=== PATIENT | female | born 1960 | race Caucasian/White ===

== ENCOUNTER 2016-11-26 07:32 | Observation (INO) | payer OTHER ==
[~2016-11-26] VITALS: Ht 165.1 cm; Wt 126.2 kg
[~2016-11-26 07:32] MED LIST: ALDACTONE100 MG PO; ALLEGRA ALLERG180 MG PO; AMIODARONE HCL200 MG PO; ANUSOL1 SUPP PR; ASPIRIN325 MG PO; AUGMENTIN500 MG PO; AUGMENTIN875 MG PO; CARDIZEM CD,CA240 MG PO; CEFTIN500 MG PO; DIFLUCAN100 MG PO; DIGOX250 MCG PO; ECOTRIN325 MG PO; Ecotrin PO; FUROSEMIDE80 MG PO; GABAPENTIN100 MG PO; GABAPENTIN300 MG PO; HUMALOG100 UNIT/2 SC; HYDROCODON-ACE1 EAC7 PO; Humibid LA,Mucinex PO; INVOKANA300 MG PO; JANUMET 50/11 TABLET PO; JANUMET XR 50-1 EAC1 PO; K-DUR20 MEQ PO; K-Dur PO; KLONOPIN0.5 M1 PO; KlonoPIN PO; LANTUS 10100 UNITS/ SC; LANTUS 3 M100 UNITS/ PO; LANTUS100 UNIT/1 SQ; LASIX20 MG PO; LASIX80 MG PO; LEVAQUIN750 MG PO; LEXAPRO20 MG PO; LOPRESSOR25 MG PO; LYRICA150 MG PO; Lasix PO; METOPROLOL TART25 MG PO; MOBIC15 MG PO; MYCOSTATIN 100,60 ML PO; NORVASC5 MG; OXYCODONE-APAP1 EACH PO; PACERONE100 MG PO; PANTOPRAZOLE SO40 MG PO; PRADAXA150 MG PO; PROBIOTIC DIGE1 EACH PO; PROCTOSOL-HC28.35 GM PR; PROTONIX40 MG PO; REQUIP1 MG PO; REQUIP3 MG PO; SPIRONOLACTONE100 MG PO; SPIRONOLACTONE25 MG PO; TOUJEO SOL300 UNIT/1 SC; TRULICITY1.5 MG/0.5 SC; TYLENOL EXTRA500 MG PO; Toprol XL PO; Tylenol Regular Stre PO; WELLBUTRIN XL150 MG PO; ZESTRIL,PRINIVI40 MG PO; ZOLOFT100 M1 PO; Zithromax PO
[2016-11-26 08:26] LABS: HEMATOCRIT 36.5 % (36.0-46.0); MCH 24.3 PG (29.0-34.0); MCHC 30.7 G/DL (30.0-36.0); MCV 79.3 FL (83-99); MEAN PLAT.VOLUME 9.6 uM^3 (9.5-12.4); PLATELET COUNT 292 K/uL (156-360); RBC DIS.WIDTH-CV 16.3 % (11.8-14.6); WHITE BLOOD COUNT 8.4 K/uL (4.1-10.2)
[2016-11-26 08:31] LABS: EOSINOPHIL (%) 6.3 % (0-5); EOSINOPHIL COUNT 0.5 K/uL (0-0.3); IMMATURE GRANULOCYTE (%) 0.2 % (0.0-0.7); IMMATURE GRANULOCYTE COUNT 0.2 K/uL; LYMPHOCYTE COUNT 1.7 K/uL (1.0-2.8); MONOCYTE (%) 6.4 % (3-12); MONOCYTE COUNT 0.5 K/uL (0-0.8); NEUTROPHIL (%) 66.2 % (45-76); NEUTROPHIL COUNT 5.6 K/uL (1.8-6.4)
[2016-11-26 08:38] LABS: CHLORIDE 108 mEq/L (99-109); POTASSIUM 3.9 mEq/L (3.7-5.4); PROTHROMBIN TIME 10.5 (9.2-11.2); PTT 30.1 (25-32); SODIUM 140 mEq/L (136-147)
[2016-11-26 08:41] LABS: GLUCOSE 148 mg/dL (70-99)
[2016-11-26 08:42] LABS: ANION GAP 8 MEQ/L (2-14); TOTAL BILIRUBIN 0.1 mg/dL (0.0-1.0)
[2016-11-26 08:44] LABS: ALKALINE PHOSPHATASE 82 IU/L (3-129); GFR ESTIMATE (CALCULATED) > 59 mL/min/
[2016-11-26 08:45] LABS: UREA NITROGEN (BUN) 19 mg/dL (9-23)
[2016-11-26 08:46] LABS: DIRECT BILIRUBIN 0.1 mg/dL (0.0-0.3)
[2016-11-26 08:54] LABS: TROP-I INTERPRETATION NEGATIVE; TROPONIN-I 0.01 ng/mL (0.0-0.30)
[2016-11-26] MEDS ORDERED: REQUIP5 MG PO (10:20)
[2016-11-26] MEDS ORDERED: ENDOCET 5-3251 EACH PO (10:26)
[2016-11-26 11:12] LABS: POINT-OF-CARE METER ID UU14100415
[2016-11-26 12:20] LABS: POINT-OF-CARE METER ID UU13113700
[2016-11-26 15:50] VITALS: BP 121/58
[2016-11-26 16:17] LABS: TROP-I INTERPRETATION NEGATIVE; TROPONIN-I 0.03 ng/mL (0.0-0.30)
[2016-11-26 17:46] LABS: POINT-OF-CARE METER ID UU13113700
[2016-11-26 19:34] LABS: TROP-I INTERPRETATION NEGATIVE; TROPONIN-I 0.02 ng/mL (0.0-0.30)
[2016-11-26 19:57] VITALS: BP 100/50
[2016-11-26 23:41] VITALS: BP 110/63
[2016-11-27 04:40] VITALS: BP 121/71
[2016-11-27 06:42] LABS: ANION GAP 7 MEQ/L (2-14); CHLORIDE 102 MEQ/L (99-109); GFR ESTIMATE (CALCULATED) > 59 mL/min/; GLUCOSE 158 mg/dL (70-99); HDL CHOLESTEROL 32 MG/DL (Desirable>=50); LDL CHOLESTEROL 27 mg/dL (Desirable<100); NON-HDL CHOLESTEROL 57 mg/dL (Desirable<160); POTASSIUM 4.1 MEQ/L (3.7-5.4); SAMPLE HEMOLYSIS CHECK 0; SAMPLE ICTERIC CHECK 0; SAMPLE LIPEMIA CHECK 0; SODIUM 138 MEQ/L (136-147); TOTAL CHOLESTEROL 89 mg/dL (Desirable<200); TRIGLYCERIDES 149 MG/DL (Normal: <150); UREA NITROGEN (BUN) 16 mg/dL (9-23)
[2016-11-27 07:53] VITALS: BP 121/70
[2016-11-27 07:54] LABS: POINT-OF-CARE METER ID UU14162513
[2016-11-27 09:50] VITALS: BP 101/54
[2016-11-27 11:09] VITALS: BP 128/77
[2016-11-27 12:04] VITALS: BP 128/97
[2016-11-27 12:26] LABS: POINT-OF-CARE METER ID UU14162513
== END 2016-11-27 14:04 | disposition home or self-care (01) ==
LOC: EME 07:32 → EDOF 09:54 → 5WEST 09:54 → EDOF 10:46 → 5WEST 11:22
PROVIDERS: Emergency Medicine; Hospitalist
DX: R07.89 Other chest pain (principal); I48.0 Paroxysmal atrial fibrillation; R10.9 Unspecified abdominal pain; I11.0 Hypertensive heart disease with heart failure; I50.32 Chronic diastolic (congestive) heart failure; E11.43 Type 2 diabetes mellitus with diabetic autonomic (poly)neuropathy; K51.90 Ulcerative colitis, unspecified, without complications; K21.9 Gastro-esophageal reflux disease without esophagitis; G43.909 Migraine, unspecified, not intractable, without status migrainosus; G25.81 Restless legs syndrome; E66.9 Obesity, unspecified; Z87.891 Personal history of nicotine dependence; Z79.4 Long term (current) use of insulin; Z98.84 Bariatric surgery status
CPT/HCPCS: 71010; 74177; 80048; 80061; 80076; 82948; 83880; 84484; 85025; 85610; 85730; 93005; 93306; 99281; 99285; G0378; J1815; J1940; S0028

== ENCOUNTER → 2017-07-10 | Outpatient (CLI) | payer OTHER ==
[~2017-07-10] MED LIST changes: +ENDOCET 5-3251 EACH PO; +REQUIP5 MG PO
== END | disposition home or self-care (01) ==
LOC: PICC 13:30
DX: T81.4XXA Infection following a procedure, initial encounter (principal); B96.5 Pseudomonas (aeruginosa) (mallei) (pseudomallei) as the cause of diseases classified elsewhere
CPT/HCPCS: 71010; 76937

== ENCOUNTER 2018-01-01 09:40 | Emergency (ER) | payer OTHER ==
[~2018-01-01] VITALS: Ht 165.1 cm; Wt 123.9 kg
[~2018-01-01 09:40] MED LIST changes: +OXYCODONE HCL15 MG PO
[2018-01-01 10:21] LABS: HEMOGLOBIN 11.9 G/DL (11.9-15.5); MCH 24.2 PG (29.0-34.0); MCHC 30.5 G/DL (30.0-36.0); MCV 79.3 FL (83-99); PLATELET COUNT 343 K/uL (156-360); RBC DIS.WIDTH-CV 15.7 % (11.8-14.6); RBC DIS.WIDTH-SD 44.8 % (39-53); RED BLOOD COUNT 4.92 M/uL (3.80-5.20); WHITE BLOOD COUNT 10.9 K/uL (4.1-10.2)
[2018-01-01 10:35] LABS: CHLORIDE 107 mEq/L (99-109); POTASSIUM 4.1 mEq/L (3.7-5.4); SODIUM 143 mEq/L (136-147)
[2018-01-01 10:36] LABS: GLUCOSE 84 mg/dL (70-99)
[2018-01-01 10:40] LABS: CREATININE 0.8 mg/dL (0.6-1.3); GFR ESTIMATE (CALCULATED) > 59 mL/min/
[2018-01-01 10:41] LABS: UREA NITROGEN (BUN) 22 mg/dL (9-23)
[2018-01-01 13:15] LABS: APPEARANCE CLEAR ((CLEAR)); BILIRUBIN NEGATIVE; BLOOD NEGATIVE; COLOR YELLOW ((YELLOW)); GLUCOSE (STRIP) NEGATIVE; KETONES NEGATIVE; LEUKOCYTES NEGATIVE; NITRITE NEGATIVE; PROTEIN (STRIP) 30; SPECIFIC GRAVITY 1.025 (1.000-1.030); UCUL ADDED? NO; UROBILINOGEN 0.2 MG/DL (0.2-1.0)
[2018-01-01 13:41] VITALS: BP 117/86
== END 2018-01-01 13:41 | disposition home or self-care (01) ==
LOC: EME 09:40
DX: R53.1 Weakness (principal); E11.9 Type 2 diabetes mellitus without complications; I48.91 Unspecified atrial fibrillation; R94.31 Abnormal electrocardiogram [ECG] [EKG]; I50.9 Heart failure, unspecified; G25.81 Restless legs syndrome; Z79.4 Long term (current) use of insulin; Z79.01 Long term (current) use of anticoagulants; Z87.891 Personal history of nicotine dependence; Z98.890 Other specified postprocedural states; Z90.49 Acquired absence of other specified parts of digestive tract; Z88.1 Allergy status to other antibiotic agents
CPT/HCPCS: 71046; 80048; 81003; 85027; 93005; 99281; 99284